=== PATIENT | female | born 1965 | race Caucasian/White ===

== ENCOUNTER 2021-04-18 21:32 | Inpatient (IN) ==
[2021-04-18] MEDS ORDERED: NS 0.9% 1000 ml BAG 1,000 ML IV ONE (22:41)
[2021-04-19 00:36] LABS: Activated Partial Thrombo Time 28.5 seconds (26.0-38.0); INR 1.27 (0.86-1.15)
[2021-04-19 00:41] LABS: Albumin 3.5 g/dL (3.2-5.2); Albumin/Globulin Ratio 1.2 (1-3); C Reactive Protein 26.74 mg/L (<8.01); Calcium 8.2 mg/dL (8.6-10.3); EGFR African American 165.9 (>60); EGFR Non-African American 137.1 (>60); Globulin 2.9 g/dL (2-4); Potassium 3.8 mmol/L (3.5-5.0); Total Bilirubin 0.3 mg/dL (0.2-1.0); Total Protein 6.4 g/dL (6.4-8.9)
[2021-04-19 00:51] LABS: Hypochromasia 1+; Polychromasia 1+
[2021-04-19 00:52] LABS: ABS Basophils 0.1 10^3/ul (0-0.2); ABS Lymphocytes 2.3 10^3/ul (1.0-4.8); ABS Monocytes 0.8 10^3/ul (0-0.8); ABS Neutrophils 10.3 10^3/ul (1.5-7.7); Eosinophil % 0.1 %; Hematocrit 25 % (35-47); Hemoglobin 7.7 g/dL (12.0-16.0); Lymphocyte % 17.2 %; Mean Corpuscular HGB Conc 31 g/dL (31-36); Mean Corpuscular Hemoglobin 23 pg (27-31); Mean Corpuscular Volume 73 fL (80-97); Mean Platelet Volume 8.2 fL (7.4-10.4); Platelet Count 321 10^3/uL (150-450); Red Blood Count 3.44 10^6 /uL (3.70-4.87); Red Cell Distribution Width 17 % (10-15); White Blood Count 13.5 10^3/uL (3.5-10.8)
[2021-04-19 02:50] LABS: Rapid COVID-19 Molecular Undetected (Undetected)
[2021-04-19] MEDS ORDERED: Dextrose 50% Syringe 50 ml 25 GM/50 ML SYRINGE IV PUSH PRN (03:02)
[2021-04-19] MEDS ORDERED: NORETHINDRONE ACETATE 5 MG TAB (NF) PO SCH (09:00)
[2021-04-19] MEDS: CMCS:NORETHINDRONE ACETATE 5 MG TAB (NF) PO SCH ×4 (09:57→21:14)
[2021-04-19 10:37] LABS: Hematocrit 23 % (35-47); Hemoglobin 7.5 g/dL (12.0-16.0)
[2021-04-19 10:57] LABS: Calcium 7.7 mg/dL (8.6-10.3); Potassium 3.5 mmol/L (3.5-5.0)
[2021-04-19 16:49] LABS: Hematocrit 23 % (35-47); Hemoglobin 7.2 g/dL (12.0-16.0)
[2021-04-19 22:13] LABS: Hematocrit 24 % (35-47); Hemoglobin 7.8 g/dL (12.0-16.0)
[2021-04-20 02:29] LABS: Hematocrit 23 % (35-47); Hemoglobin 7.2 g/dL (12.0-16.0)
[2021-04-20 05:11] LABS: Hematocrit 21 % (35-47); Hemoglobin 6.8 g/dL (12.0-16.0); Mean Corpuscular HGB Conc 32 g/dL (31-36); Mean Corpuscular Hemoglobin 25 pg (27-31); Mean Corpuscular Volume 78 fL (80-97); Mean Platelet Volume 8.1 fL (7.4-10.4); Platelet Count 260 10^3/uL (150-450); Red Blood Count 2.71 10^6 /uL (3.70-4.87); Red Cell Distribution Width 18 % (10-15); White Blood Count 13.6 10^3/uL (3.5-10.8)
[2021-04-20 05:35] LABS: Calcium 7.5 mg/dL (8.6-10.3); Potassium 3.2 mmol/L (3.5-5.0)
[2021-04-20] MEDS ORDERED: Potassium Chlor 20 meq TAB.ER PO ONE (07:25)
[2021-04-20] MEDS: CMCS:NORETHINDRONE ACETATE 5 MG TAB (NF) PO SCH ×2 (08:19→21:07)
[2021-04-20 10:02] LABS: Hematocrit 24 % (35-47); Hemoglobin 8.1 g/dL (12.0-16.0)
[2021-04-20 16:57] LABS: Hematocrit 23 % (35-47); Hemoglobin 7.6 g/dL (12.0-16.0)
[2021-04-20 23:09] LABS: Hematocrit 22 % (35-47); Hemoglobin 7.4 g/dL (12.0-16.0)
[2021-04-21 06:39] LABS: ABS Basophils 0.1 10^3/ul (0-0.2); ABS Eosinophils 0.1 10^3/ul (0-0.6); ABS Lymphocytes 3.9 10^3/ul (1.0-4.8); ABS Neutrophils 7.3 10^3/ul (1.5-7.7); Eosinophil % 0.6 %; Hematocrit 20 % (35-47); Hemoglobin 6.7 g/dL (12.0-16.0); Lymphocyte % 31.5 %; Mean Corpuscular HGB Conc 33 g/dL (31-36); Mean Corpuscular Hemoglobin 26 pg (27-31); Mean Corpuscular Volume 80 fL (80-97); Mean Platelet Volume 8.1 fL (7.4-10.4); Platelet Count 261 10^3/uL (150-450); Red Blood Count 2.56 10^6 /uL (3.70-4.87); Red Cell Distribution Width 19 % (10-15); White Blood Count 12.4 10^3/uL (3.5-10.8)
[2021-04-21 07:08] LABS: Potassium 3.4 mmol/L (3.5-5.0)
[2021-04-21] MEDS: CMCS:NORETHINDRONE ACETATE 5 MG TAB (NF) PO SCH ×2 (09:16→20:35)
[2021-04-21] MEDS: Iron Sucrose 200 MG in NS 0.9% 100 ml BAG 100 ML IVPB SCH (13:37)
[2021-04-22 07:41] LABS: ABS Basophils 0.1 10^3/ul (0-0.2); ABS Eosinophils 0.2 10^3/ul (0-0.6); ABS Lymphocytes 3.5 10^3/ul (1.0-4.8); ABS Monocytes 0.9 10^3/ul (0-0.8); ABS Neutrophils 7.2 10^3/ul (1.5-7.7); Eosinophil % 1.6 %; Hematocrit 25 % (35-47); Hemoglobin 8.4 g/dL (12.0-16.0); Lymphocyte % 29.7 %; Mean Corpuscular HGB Conc 34 g/dL (31-36); Mean Corpuscular Hemoglobin 27 pg (27-31); Mean Corpuscular Volume 80 fL (80-97); Mean Platelet Volume 7.9 fL (7.4-10.4); Nucleated Red Blood Cells % 0.1; Platelet Count 302 10^3/uL (150-450); Red Blood Count 3.12 10^6 /uL (3.70-4.87); Red Cell Distribution Width 18 % (10-15); White Blood Count 11.9 10^3/uL (3.5-10.8)
[2021-04-22] MEDS: CMCS:NORETHINDRONE ACETATE 5 MG TAB (NF) PO SCH (08:37)
[2021-04-22] MEDS: Iron Sucrose 200 MG in NS 0.9% 100 ml BAG 100 ML IVPB SCH (12:54)
[2021-04-22 16:02] VITALS: BP 143/58
== END 2021-04-22 16:05 | disposition home or self-care (01) | DRG 532 ==
LOC: EDBD → EDHOLD 21:32 → ED 21:32 → SUATTDRO 04-19 02:55 → MED 04-19 02:56 → SUATTDRO 04-20 11:00
PROVIDERS: ADMIT Internal Medicine; ATTEND Internal Medicine